=== PATIENT | female | born 1970 | race Hispanic/Latino ===

== ENCOUNTER 2017-07-27 08:43 | Day surgery (SDC) | payer BC ==
[2017-07-27 10:39] LABS: Hemoglobin 13.6 gm/dl (10.1-14.3); Mean Corpuscular HGB Conc 33 % (30-34); Mean Corpuscular Hemoglobin 31 pg (28-32); Mean Corpuscular Volume 93 fl (79-97); Platelet Count 253 K/mm3 (140-440); Red Blood Count 4.41 M/mm3 (3.65-5.03); Red Cell Distribution Width 12.1 % (13.2-15.2)
[2017-07-27 10:51] LABS: INR 0.92 (0.87-1.13); Partial Thromboplastin Time 25.7 Sec. (24.2-36.6)
[2017-07-27] MEDS ORDERED: XYLOCAINE 1% 20 mL ONE (11:03)
[2017-07-27] MEDS ORDERED: TYLENOL PO ONE ×2 (12:19→12:30)
--- NOTE | 2017-07-27 12:26 | Fluoroscopy Report ---
FLUORO GUIDED LUMBAR PUNCTURE INDICATION: Headache, tingling. Multiple sclerosis evaluation. COMPARISON: None similar. IMAGES/CINE CLIPS: 2 FINDINGS: After obtaining risks and benefits to patient, written informed consent obtained. Patient positioned prone on the fluoroscopy table. An appropriate skin site marked using fluoro guidance. Patient prepped and draped in the usual sterile fashion. 1% lidocaine used for local anesthesia. A 22-gauge spinal needle advanced into the thecal sac at L4 with clear CSF obtained. Total of approximately 16 cc CSF retrieved and sent to the lab in 4 separate test tubes. Patient tolerated the procedure well and left the department in stable condition. CONCLUSION: Status post lumbar puncture, as described. Dr. Mcallister present for and performed the entire procedure. Thank you for the opportunity to participate in this patient's care.
[2017-07-27] MEDS ORDERED: XYLOCAINE 1% 20 mL INFILTRATI ONE (12:34)
--- NOTE | 2017-07-27 12:35 | Short Stay Summary ---
Short Stay Documentation Date of service: 07/27/17 - History Past Medical History: other (Headache, tingling, possible MS) - Allergies and Medications Current Medications: Allergies hibiclens Adverse Reaction (Uncoded 07/27/17 09:12) Rash tagaderm Adverse Reaction (Uncoded 07/27/17 09:12) Rash ultrasound gel Adverse Reaction (Uncoded 07/27/17 09:12) Rash Home Medications Medication Instructions Recorded Confirmed Last Taken Type Bupropion HCl [Wellbutrin XL] 300 mg PO QDAY 07/27/17 07/27/17 07/27/17 History Dextroamphetamine/Amphetamine 30 mg PO QDAY 07/27/17 07/27/17 07/26/17 History [Adderall XR 30 mg] Pantoprazole [Protonix] 40 mg PO BID 07/27/17 07/27/17 07/27/17 History Ranitidine HCl [Acid Control] 150 mg PO QDAY 07/27/17 07/27/17 07/27/17 History Tobramycin/Dexameth 0.3-0.1% 1 drops OTIC QID 07/27/17 07/27/17 07/27/17 History [Tobradex] - Physical exam General appearance: no acute distress - Brief post op/procedure progress note Date of procedure: 07/27/17 Pre-op diagnosis: headache, tingling. Possible MS Post-op diagnosis: same Procedure: FL guided lumbar puncture. Anesthesia: local Findings: 16 ml of clear CSF obtained. Surgeon: JALEN ESPINOZA Estimated blood loss: none Specimen disposition: to lab Condition: stable - Disposition Condition at discharge: Good Disposition: [id number] TO HOME OR SELFCARE Short Stay Discharge Plan Follow up with: AMANDA ELI MD [Primary Care Provider] - 7 Days
[2017-07-27 12:54] LABS: Glucose,CSF 52 mg/dL
[2017-07-27 13:48] VITALS: BP 107/65
[2017-07-27 14:54] LABS: Appearance,CSF Clear; Red Blood Cell,CSF 2 /mm3 (0-0); Total Cells Counted 45 /mm3; White Blood Cell,CSF 1 /mm3 (1-10)
[2017-07-29 20:33] LABS: Albumin 3.9 g/dL (3.8-4.8); Gamma Globulin 0.9 g/dL (0.8-1.7)
== END 2017-07-27 14:24 | disposition home or self-care (01) ==
LOC: CATHLABREC 08:43 → EDSTATUS 09:00 → CATHLABREC 14:24
PROVIDERS: ATTEND Specialist
DX: G35 Multiple sclerosis (principal); Z88.8 Allergy status to other drugs, medicaments and biological substances; Z91.048 Other nonmedicinal substance allergy status; Z79.01 Long term (current) use of anticoagulants
CPT/HCPCS: 36415; 62270; 77003; 82040; 82947; 84160; 84165; 85027; 85610; 85730; 86334; 86592; 87806; 88112; 89051